=== PATIENT | female | born 2000 | race Caucasian/White ===

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

== ENCOUNTER → 2022-10-07 | Outpatient (CLI) | payer MEDICAID, SELFPAY | END | disposition home or self-care (01) | LOC: LABSPEC 16:15 | PROVIDERS: PCP Family Medicine; Visit Provider Obstetrics & Gynecology | DX: N89.8 Other specified noninflammatory disorders of vagina (principal) | CPT/HCPCS: 87070; 87205 ==

== ENCOUNTER 2022-10-19 11:09 | Emergency (ER) | payer MEDICAID, SELFPAY ==
[2022-10-19 11:09] VITALS: RESP 16
[2022-10-19 11:10] VITALS: BP 138/90; PULSE 101; RESP 18; TEMP 36.1; O2SAT 99; BMI 22.3
--- NOTE | 2022-10-19 11:19 | NURSING ---
NO OLD EKGS
--- NOTE | 2022-10-19 11:40 | EKG12_ITS ---
Test Reason : CHEST PAIN Blood Pressure : / mmHG Vent. Rate : 075 BPM Atrial Rate : 075 BPM P-R Int : 136 ms QRS Dur : 148 ms QT Int : 426 ms P-R-T Axes : 078 -70 081 degrees QTc Int : 475 ms Atrial-sensed ventricular-paced rhythm Abnormal ECG Confirmed by MARY ANNE OROURKE, RYAN ([id number]), editor book TIM GREENWOOD ([id number]) on 10/21/2022 1:13:54 PM Referred By: JOANNA Confirmed By:RYAN NORTH MD
--- NOTE | 2022-10-19 11:43 | EX.ED.DYSGE1 ---
HPI History of Present Illness Chief Complaint: Chest Pain Informant: patient Narrative Narrative: 22-year-old female presenting with chest pain. States it started 4 days ago. She states the pain has been constant. It is worsened in different positions. She also recently was on a course of doxycycline and read that this can cause acid reflux. She states the pain is in her mid chest and goes to her throat. She has associated shortness of breath and nausea. 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 She is not on anticoagulants. Denies PE/DVT risk factors. Recent Illness/Hospitalization: No PFSH PFSH Medical History Aftercare following removal/replacement pacemaker (~2020) Heart block AV complete Pacemaker Home Medications copper 380 square mm intrauterine device (ParaGard T 380A) 1 device intrauterine ONCE 09/09/21 [History Last Taken Unknown] doxycycline hyclate 100 mg capsule 100 mg PO BID 7 days #14 caps 10/07/22 [Rx Last Taken Unknown] famotidine 20 mg tablet (Pepcid) 20 mg PO DAILY #30 tabs 10/19/22 [Rx Last Taken Unknown] Allergy/AdvReac Type Severity Reaction Status Date / Time adhesive tape Allergy Mild rash Verified 10/19/22 11:11 Latex, Natural Rubber Allergy Mild rash Verified 10/19/22 11:11 Family History Grandmother Cancer Mother Sjogren's disease Social History Smoking Status: Never smoker alcohol intake: never substance use type: does not use caffeine: Yes what type of physical activity do you participate in: none seatbelt use: always do you feel safe at home: Yes additional social history: Works at [employer] ED Constitutional Constitutional ED: Denies fever(s) Eyes Eyes: Denies change in vision ENT ENT ED: Denies rhinorrhea or sore throat Cardiovascular Cardiovascular: Reports chest pain; Denies palpitations Respiratory/Chest Respiratory/Chest: Reports dyspnea; Denies cough Gastrointestinal Gastrointestinal: Reports nausea; Denies abdominal pain, diarrhea or vomiting Genitourinary Genitourinary ED: Denies dysuria Musculoskeletal Musculoskeletal: Denies myalgias Integumentary Denies rash Neurologic Neurologic: Denies headache(s) Psychiatric Psychiatric: Denies suicidal thoughts EXAM Physical Exam Const Vital Signs: 10/19/22 11:10 10/19/22 11:43 10/19/22 11:09 Temperature 97 F L Temperature Source Temporal Pulse Rate 101 H Respiratory Rate 18 16 Respiratory Effort Normal Non-Labored Blood Pressure 138/90 H Blood Pressure Mean 106 Pulse Ox 99 Oxygen Delivery Method Room Air 10/19/22 12:09 10/19/22 13:09 Temperature Temperature Source Pulse Rate 80 77 Respiratory Rate 18 22 H Respiratory Effort Blood Pressure 107/65 Blood Pressure Mean 79 Pulse Ox 94 Oxygen Delivery Method Positive well nourished and well developed General Appearance ED: well developed HEENT Reports normocephalic and head/scalp atraumatic Eyes PERRL and EOMs intact bilaterally Neck supple General: Negative for tenderness Chest Wall inspection of chest normal Chest Narrative: Chest wall tender to palpation with no crepitus Resp normal respiratory effort and clear to auscultation bilaterally Cardio regular rate and regular rhythm GI non-tender and non-distended Palpation: soft; Negative for guarding or rebound tenderness present no CVA tenderness Extremity normal to inspection Neuro oriented x3 Sensorium / Orientation: alert Psych mental status grossly normal MDM MDM MDM Narrative Medical decision making narrative: EKG is paced at a rate of 75 with no acute ischemic changes. CBC, chemistries are unremarkable. Troponin and delta troponin are negative. D-dimer is normal. Patient was given a GI cocktail with improvement. Chest x-ray read by myself and radiology shows no acute findings. Patient is feeling improved on reevaluation. She is given prescription for Pepcid. Advised to follow-up with her primary care physician. Advised to return to the ED for worsening complaints. Lab Data Attestation: I reviewed the patient's lab results. Labs: Laboratory Results - last 24 hr 10/19/22 10/19/22 10/19/22 11:25 11:25 11:25 WBC 6.3 RBC 5.07 Hgb 15.0 Hct 45.0 MCV 88.8 MCH 29.6 MCHC 33.3 RDW Std Deviation 40.8 RDW Coeff of Adriana 12.5 Plt Count 326 MPV 11.2 Immature Gran % (Auto) 0.200 Neut % (Auto) 58.5 Lymph % (Auto) 35.2 Burke % (Auto) 4.6 Eos % (Auto) 0.9 Baso % (Auto) 0.6 Absolute Neuts (auto) 3.7 Absolute Lymphs (auto) 2.23 Nucleated RBC % 0 D-Dimer Quant (PE/DVT) 0.33 Sodium 139 Potassium 3.8 Chloride 107 Carbon Dioxide 27.0 Anion Gap 5 BUN 8 Creatinine 0.62 Estim Creat Clear Calc 109.22 Est GFR (MDRD) Af Amer 158 Est GFR (MDRD) Non-Af 130 BUN/Creatinine Ratio 12.9 Glucose 95 Calcium 9.3 Troponin I High Sens 4 10/19/22 13:40 WBC RBC Hgb Hct MCV MCH MCHC RDW Std Deviation RDW Coeff of Adriana Plt Count MPV Immature Gran % (Auto) Neut % (Auto) Lymph % (Auto) Burke % (Auto) Eos % (Auto) Baso % (Auto) Absolute Neuts (auto) Absolute Lymphs (auto) Nucleated RBC % D-Dimer Quant (PE/DVT) Sodium Potassium Chloride Carbon Dioxide Anion Gap BUN Creatinine Estim Creat Clear Calc Est GFR (MDRD) Af Amer Est GFR (MDRD) Non-Af BUN/Creatinine Ratio Glucose Calcium Troponin I High Sens 6 Radiography Chest X-Ray - ED: 1 View, Read by ED Physician and Read by Radiologist Diagnostic Testing: Clinical Impression(s) from Imaging Studies Chest X-Ray 10/19/22 12:02 IMPRESSION: No acute findings in the chest. Electronically Signed: Blue Obregon MD at 12:14 EST Reading Location ID and State: [address] [place] [address] , Service support , EKG Initial EKG: Attestation: I personally reviewed and interpreted this EKG as follows: Interpretation: No Acute Injury Pattern and Paced Discharge Plan Triage Chief Complaint: Chest Pain ED Provider: Dianna Leavitt Dx/Rx/DC Orders Clinical Impression: Atypical chest pain Instructions: ED Chest Pain, Uncertain Cause Prescriptions: New famotidine [Pepcid] 20 mg tablet 20 mg PO DAILY Qty: 30 0RF No Action ParaGard T 380A 380 square mm intrauterine device 1 device intrauterine ONCE Rx Instructions: as a single dose doxycycline hyclate 100 mg capsule 100 mg PO BID 7 Days Qty: 14 2RF Primary Care Provider: Manjinder Marquez Referrals: Manjinder Marquez MD [Primary Care Provider] - Disposition Disposition: Home, Self Care
[2022-10-19] MEDS: Ondansetron 4 MG/2 ML Vial IV (11:54)
[2022-10-19] MEDS: Aspirin 81 MG TAB.CHEW 324 MG PO (11:54)
[2022-10-19] MEDS: 0.9% Normal Saline 1,000 ML 1000 ML IV (11:54)
[2022-10-19] MEDS: Mag Hydrox/Al Hydrox/Simeth 30 ML UDC PO (11:55)
[2022-10-19 12:00] LABS: Absolute Lymphocyte Count 2.23 X10^3/uL (0.83-4.51); Absolute Neutrophil Count 3.7 X10^3/uL (2.0-7.7); Basophil# 0.04 X10^3/uL; Basophil% 0.6 % (0-1); Eosinophil# 0.06 X10^3/uL; Eosinophils% 0.9 % (0-5); Lymphocyte # 2.23 X10^3/ul (0.83-4.51); Lymphocyte % 35.2 % (19-41); Mean Corp Hgb Conc 33.3 g/dL (32-36); Mean Corpuscular Hgb 29.6 pg (27.0-32.0); Mean Corpuscular Volume 88.8 fL (81-99); Mean Platelet Vol. 11.2 fl (6.2-12.0); Monocyte# 0.29 X10^3/uL; Monocyte% 4.6 % (0-10); NRBC Flagged by Analyzer 0 % (0-5); Neutrophil # 3.71 X10^3/uL (2.7-7.7); Neutrophil % 58.5 % (47-70); Platelet Count 326 K/mm3 (150-450); RBC Distribution Width CV 12.5 % (11.6-14.6); RBC Distribution Width SD 40.8 fl (35.1-43.9); Red Blood Count 5.07 M/mm3 (4.2-5.4); White Blood Count 6.3 K/mm3 (4.4-11.0)
--- NOTE | 2022-10-19 12:02 | RAD_ITS ---
EXAM: XR CHEST, 1 VIEW CLINICAL INDICATION: chest pain TECHNIQUE: Frontal view of the chest. This report was created using [employer] report generation technology. COMPARISON: None. FINDINGS: LUNGS AND PLEURAL SPACES: The lungs are clear. No pneumothorax. No effusion. HEART: Normal cardiac size. MEDIASTINUM: Central airways and mediastinal contour are unremarkable. BONES/JOINTS: Unremarkable. SOFT TISSUES: Unremarkable. TUBES, LINES AND DEVICES: Dual-chamber pacing lead tips are in the right atrium and right ventricle. There are electrodes overlying the lower thoracic spine, a from below. RAD/Chest 1 View (Portable) IMPRESSION: No acute findings in the chest. Electronically Signed: Blue Obregon MD at 12:14 EST ,
[2022-10-19 12:09] VITALS: PULSE 80; RESP 18
[2022-10-19 12:16] LABS: D-Dimer Quantitative (DVT/PE) 0.33 FEU/ug/m (0.27-0.49)
[2022-10-19 12:17] LABS: Anion Gap 5 (5-15); BUN 8 mg/dL (7-18); BUN/Creat Ratio 12.9 RATIO (10-20); Calcium,Total 9.3 mg/dL (8.5-10.1); Chloride 107 mmol/L (98-107); Creatinine, Serum 0.62 mg/dL (0.55-1.02); EST Glomerular Filtration Rate 130 mL/min (>60); Est Glom Filt Rate - Afr Amer 158 mL/min (>60); Estimated Creatinine Clearance 109.22 ml/min; Glucose 95 mg/dL (74-106); Potassium 3.8 mmol/L (3.5-5.1); Sodium Level 139 mmol/L (136-145); Troponin-I HS (w/2H Reflex) 4 pg/mL (3.0-54.0)
[2022-10-19 13:09] VITALS: BP 107/65; PULSE 77; RESP 22; O2SAT 94
[2022-10-19 13:56] LABS: Reflex Troponin-HS? (from REC) Y
[2022-10-19 14:12] LABS: Troponin-I HS 6 pg/mL (3.0-54.0)
[2022-10-19 15:22] VITALS: BP 110/70; PULSE 93; RESP 16
== END 2022-10-19 15:22 | disposition home or self-care (01) ==
PROVIDERS: Emergency Provider Emergency Medicine; PCP Family Medicine; Visit Provider Emergency Medicine
DX: R07.89 Other chest pain (principal); R06.02 Shortness of breath; Z95.0 Presence of cardiac pacemaker
CPT/HCPCS: 71045; 80048; 84484; 85025; 85379; 93005; 96361; 96374; 99285; J7030; A4216; J2405

== ENCOUNTER → 2023-06-09 | Outpatient (CLI) | payer MEDICAID, SELFPAY | END | disposition home or self-care (01) | LOC: LABSPEC 14:08 | PROVIDERS: PCP Nurse Practitioner Family; Referring Provider Nurse Practitioner Family; Visit Provider Nurse Practitioner Family | DX: N39.0 Urinary tract infection, site not specified (principal) | CPT/HCPCS: 87077; 87086; 87088; 87186 ==